=== PATIENT | male | born 1950 | race Caucasian/White ===

== ENCOUNTER 2018-11-11 11:08 | Emergency (ER) | payer MEDICARE ==
[2018-11-11] MEDS ORDERED: Lidocaine 1% INJ* 10 MG/ML 30 ML SDV INJ ONE (11:27)
--- NOTE | 2018-11-11 11:42 | ED ---
Adult Trauma - HPI Summary HPI Summary: 68-year-old male presents with right hand laceration today. He states that he was on his to stand when it collapsed and he fell 10 feet. He states he landed on his legs then fell backwards onto his right side. He admits to right ankle right shoulder and right hand pain. He believes his tetanus up-to-date. No numbness or tingling. He admits to some left-sided rib pain. No abdominal pain. No hip pain. No other injury. He did not his head or lose consciousness. No neck pain. He denies any back pain. he is able to ambulate. - History of Current Complaint Chief Complaint: EDTraumaMultiple Stated Complaint: FELL, LAC ON FINGER, BACK AND ANKLE PAIN Time Seen by Provider: 11/11/18 11:20 Pain Intensity: 5 - Allergy/Home Medications Allergies/Adverse Reactions: Allergies Allergy/AdvReac Type Severity Reaction Status Date / Time Sulfa (Sulfonamide AdvReac Intermediate Headache Verified 11/11/18 11:15 Antibiotics) PMH/Surg Hx/FS Hx/Imm Hx Endocrine/Hematology History: Denies: Hx Anticoagulant Therapy Cardiovascular History: Reports: Hx Hypertension Infectious Disease History: No Infectious Disease History: Denies: Traveled Outside the [place] in Last 30 Days - Family History Known Family History: Positive: Non-Contributory - Social History Substance Use Type: Reports: None Smoking Status (MU): Unknown if Ever Smoked Review of Systems Negative: Fever Negative: Chest Pain Negative: Shortness Of Breath Positive: Myalgia - right ankle, hand, shoulder Positive: Other - laceration right pinky All Other Systems Reviewed And Are Negative: Yes Physical Exam Triage Information Reviewed: Yes Vital Signs On Initial Exam: Initial Vitals Temp Pulse Resp BP Pulse Ox 97.9 F 81 20 148/98 95 11/11/18 11:12 11/11/18 11:12 11/11/18 11:12 11/11/18 11:12 11/11/18 11:12 Vital Signs Reviewed: Yes Appearance: Positive: Well-Appearing Skin: Positive: Warm, Dry, Other - 4cm by 1/2cm flap like laceration on proximal phalanx of right pinky Head/Face: Positive: Normal Head/Face Inspection Eyes: Positive: Normal, Conjunctiva Clear ENT: Positive: Pharynx normal Neck: Positive: Other: - nontender neck and back Respiratory/Lung Sounds: Positive: Clear to Auscultation, Breath Sounds Present Cardiovascular: Positive: Normal, RRR Abdomen Description: Positive: Nontender, Soft Bowel Sounds: Positive: Present Musculoskeletal: Positive: Strength/ROM Intact - hand, ankle, shoulder right, Other - tenderness right ankle medial malleolus, good pulses, tenderness right hand, tenderness right shoulder, tenderness left side of ribs 5-8. sensation grossly intact. neg snuff box tenderness, capillary refill< 2secs Neurological: Positive: Normal Psychiatric: Positive: Normal Procedures - Laceration/Wound Repair 1 Location: Other - right pinky Description: Irregular Anesthesia: Digital, 1.0% Length, Depth and Shape: 4cm by 1/2cm Irrigated w/ Saline (ccs): 500 Closure: Single Layer Suture Type: Prolene Number of Sutures: 7 Layer Closure?: No Sterile Dressing Applied?: Yes - telfa, coband, metal finger splint Diagnostics - Vital Signs Vital Signs Temp Pulse Resp BP Pulse Ox 11/11/18 11:12 97.9 F 81 20 148/98 95 - Laboratory Lab Statement: Any lab studies that have been ordered have been reviewed, and results considered in the medical decision making process. - Radiology ankle Radiology Interpretation Completed By: ED Physician Summary of Radiographic Findings: no fx hand, shoulder Radiology Interpretation Completed By: ED Physician Summary of Radiographic Findings: no fx ribs Radiology Interpretation Completed By: ED Physician Summary of Radiographic Findings: no fx Adult Trauma Course/Dx - Course Course Of Treatment: 68-year-old male presents with right hand laceration today. He states that he was on his to stand when it collapsed and he fell 10 feet. He states he landed on his legs then fell backwards onto his right side. He admits to right ankle right shoulder and right hand pain. He believes his tetanus up-to-date. No numbness or tingling. He admits to some left-sided rib pain. No abdominal pain. No hip pain. No other injury. He did not his head or lose consciousness. No neck pain. He denies any back pain. he is able to ambulate. on exam has 4cm flap like laceration on right pinky cleaned area and placed 7 sutures. placed in metal finger splint. tenderness right shoulder, right ankle, and right hand. neurovascular intact. nontender back or neck. xray ankle, hand, and shoulder normal. tenderness left ribs. normal xray ribs. told to place ice on the area. patient understand and agrees with plan. - Diagnoses Provider Diagnoses: Laceration of right little finger, Right ankle pain, Right shoulder pain, Fall , Rib pain on left side, Right hand pain Discharge - Sign-Out/Discharge Documenting (check all that apply): Patient Departure - Discharge Plan Condition: Good Disposition: HOME Prescriptions: Cephalexin CAP* [Keflex CAP*] 500 mg PO BID #9 cap Patient Education Materials: Care For Your Stitches (ED), R.I.C.E. Treatment ( ED) Referrals: No Primary Care Phys,NOPCP [Primary Care Provider] - Additional Instructions: take keflex twice a day for 5 days Keep area in splint, change dressing once a day for next 5 days Keep area clean and dry for 24 hours Take Tylenol for pain every [address], elevate Return to ED or primary for suture removal in 8-10 days Return to ED if develop signs of infection such as fever, spreading redness, or pus formation - Billing Disposition and Condition Condition: GOOD Disposition: Home
[2018-11-11] MEDS ORDERED: Lidocaine 1%* 5 ML VIAL ONE (11:51)
[2018-11-11] MEDS ORDERED: Cephalexin CAP* 500 MG PO ONE (12:37)
[2018-11-11 13:04] VITALS: BP 136/88
== END 2018-11-11 13:02 | disposition home or self-care (01) ==
LOC: ED 11:08
DX: S61.216A Laceration without foreign body of right little finger without damage to nail, initial encounter (principal); W17.89XA Other fall from one level to another, initial encounter; Y92.9 Unspecified place or not applicable; M25.471 Effusion, right ankle; M25.571 Pain in right ankle and joints of right foot; M25.511 Pain in right shoulder; R07.81 Pleurodynia; Z88.2 Allergy status to sulfonamides
CPT/HCPCS: 12002; 99282; A9270-GY